=== PATIENT | male | born 1965 | race Caucasian/White ===

== ENCOUNTER 2021-02-02 08:29 | Inpatient (IN) | payer MEDICAID ==
[~2021-02-02] VITALS: Ht 162.6 cm; Wt 72.6 kg
[2021-02-02] MEDS ORDERED: KETOROLAC 30MG/ML VIAL IV STA (09:16)
[2021-02-02 09:21] LABS: BASOPHILS % 0.7 % (0.0-2.0); EOSINOPHILS % 0.5 % (0.0-5.0); HEMATOCRIT. 40.7 % (42.0-52.0); HEMOGLOBIN. 13.7 g/dL (14.0-18.0); LYMPHOCYTES % 30.3 % (20.0-50.0); MEAN CORPUSCULAR HEMOGLOBIN 31.8 pg (28.0-32.0); MEAN CORPUSCULAR VOLUME 94.6 fL (80.0-94.0); MEAN PLATELET VOLUME 10.3 fl (7.4-10.4); MONOCYTES % 9.1 % (2.0-8.0); NEUTROPHILS % 59.4 % (40.0-76.0); PLATELET 153 x1000/uL (130-400); RED BLOOD CELL COUNT 4.31 mill/uL (4.7-6.1); RED CELL DISTRIBUTION WIDTH 13.3 % (11.6-14.6)
[2021-02-02 09:27] LABS: CHLORIDE 106 mEq/L (98-107)
[2021-02-02] MEDS ORDERED: FUROSEMIDE 40MG/4ML VIAL IVP NR (10:30)
[2021-02-02] MEDS ORDERED: LIDOCAINE 5% PATCH TOP SCH (14:45)
[2021-02-02] MEDS ORDERED: LORAZEPAM 0.5MG TABLET PO PRN (14:45)
[2021-02-02] MEDS ORDERED: MORPHINE SULFATE 2 MG/ML CPJ (NOT FOR IM USE) IV PRN (14:45)
[2021-02-02] MEDS ORDERED: IPRATROPIUM/ALBUTEROL 0.5-3(2.5)MG/3ML NEB HHN PRN (14:45)
[2021-02-02] MEDS ORDERED: CLONIDINE 0.1MG TABLET PO PRN (14:45)
[2021-02-02] MEDS ORDERED: HYDROCODONE/ACETAMINOPHEN 5/325MG TABLET PO PRN (14:45)
[2021-02-02] MEDS ORDERED: ACETAMINOPHEN 325MG TABLET PO PRN ×2 (14:45)
[2021-02-02] MEDS ORDERED: ONDANSETRON HCL 4MG/2ML INJ IV PRN (14:45)
[2021-02-02] MEDS ORDERED: DOCUSATE SODIUM 100MG CAPSULE PO PRN (14:45)
[2021-02-02] MEDS ORDERED: NALOXONE HCL 0.4MG/ML VIAL IV PRN (15:00)
[2021-02-02 16:50] VITALS: BP 190/98
[2021-02-02 18:05] VITALS: BP 190/98
[2021-02-02] MEDS: AMLODIPINE 5MG TABLET PO SCH (19:08)
[2021-02-02] MEDS: HYDRALAZINE HCL 25MG TABLET PO SCH ×2 (19:08→21:10)
[2021-02-02 20:43] VITALS: BP 187/97
[2021-02-03 01:21] VITALS: BP 140/82
[2021-02-03 04:28] VITALS: BP 140/71
[2021-02-03] MEDS: HYDRALAZINE HCL 25MG TABLET PO SCH (05:18)
[2021-02-03] MEDS ORDERED: ASPI-1406 PO (07:08)
[2021-02-03] MEDS ORDERED: CARV3.1242 PO (07:08)
[2021-02-03 08:00] VITALS: BP 158/86
[2021-02-03] MEDS: AMLODIPINE 5MG TABLET PO SCH (08:41)
[2021-02-03 10:53] LABS: CHLORIDE 102 mEq/L (98-107)
[2021-02-03 12:00] VITALS: BP 128/71
[2021-02-03] MEDS ORDERED: AMLO5TAB88 PO (12:36)
[2021-02-03] MEDS ORDERED: HYDR-4134 PO (12:36)
[2021-02-03] MEDS ORDERED: LIDO700A30 TOP (12:36)
[2021-02-03] MEDS ORDERED: CYCL5TAB MT (12:36)
[2021-02-03] MEDS ORDERED: ACET650T37 MT (12:37)
[2021-02-03] MEDS ORDERED: HYDR-4001 MT (12:37)
[2021-02-03] MEDS ORDERED: HYDRALAZINE HCL 25MG TABLET PO SCH (14:00)
[2021-02-03 14:01] VITALS: BP 128/71
[2021-02-03 16:00] VITALS: BP 132/77
== END 2021-02-03 17:31 | disposition home or self-care (01) | DRG 194 ==
LOC: ER 08:54 → 6WST 11:25 → ENRESERV 15:25
PROVIDERS: ADMIT Internal Medicine; ATTEND Internal Medicine
DX: I11.0 Hypertensive heart disease with heart failure (principal); D64.9 Anemia, unspecified; I16.0 Hypertensive urgency; E11.9 Type 2 diabetes mellitus without complications; R07.89 Other chest pain; I50.33 Acute on chronic diastolic (congestive) heart failure; Z86.73 Personal history of transient ischemic attack (TIA), and cerebral infarction without residual deficits
CPT/HCPCS: 36415; 71045; 80048; 80053; 83880; 84484; 85025; 93005; 93306; 99291; J1885; J1940